=== PATIENT | male | born 2000 | race Caucasian/White ===

== ENCOUNTER 2022-12-24 12:37 | Inpatient (IN) | payer OTHER ==
[~2022-12-24] VITALS: Ht 180.3 cm; Wt 89.5 kg
[2022-12-24] MEDS ORDERED: DIAZEPAM 5 MG TABLET PO ONE (15:00)
[2022-12-24] MEDS ORDERED: IBUPROFEN 600 MG TABLET PO ONE (15:00)
[2022-12-24] MEDS ORDERED: LIDOCAINE 5% (PATCH) 1 EA PATCH TP SCH (15:00)
[2022-12-24] MEDS ORDERED: DIAZEPAM 5 MG TABLET ONE (15:38)
[2022-12-24] MEDS ORDERED: LIDOCAINE 5% (PATCH) 1 EA PATCH TP ONE (15:38)
[2022-12-24] MEDS ORDERED: IBUPROFEN 600 MG TABLET ONE (15:38)
[2022-12-24] MEDS ORDERED: MORPHINE SULFATE INJ 2 MG/ML DISP.SYRIN IV ONE (17:00)
[2022-12-24] MEDS ORDERED: MORPHINE SULFATE INJ 2 MG/ML DISP.SYRIN ONE (17:21)
[2022-12-24 17:51] LABS: BASOPHILS % (AUTO) 0.5 % (0.0-2.0); EOSINOPHILS # (AUTO) 0.1 K/uL (0.0-0.7); EOSINOPHILS % (AUTO) 1.6 % (0.0-6.0); HEMATOCRIT 47 % (39-51); HEMOGLOBIN 15.4 g/dL (13.5-17.5); LYMPHOCYTES # (AUTO) 3.3 K/uL (0.8-4.8); LYMPHOCYTES % (AUTO) 40.8 % (20.0-44.0); MEAN CORPUSCULAR HEMOGLOBIN 29 PG (26.0-33.0); MEAN CORPUSCULAR HGB CONC 33 g/dl (31.0-36.0); MEAN CORPUSCULAR VOLUME 88 fL (80-96); MONOCYTES # (AUTO) 0.4 K/uL (0.1-1.30); MONOCYTES % (AUTO) 4.4 % (2.0-12.0); NEUTROPHILS # (AUTO) 4.3 K/uL (1.8-8.9); NEUTROPHILS % (AUTO) 52.7 % (43.0-81.0); PLATELET COUNT (AUTO) 206 K/uL (150-450); RED BLOOD CELL COUNT(AUTO) 5.32 MIL/uL (4.5-6.0); RED CELL DISTRIBUTION WIDTH 13.8 % (11.5-15.0); WHITE BLOOD COUNT (AUTO) 8.1 K/uL (4.3-11.0)
[2022-12-24 18:18] LABS: CALCIUM, SERUM 8.7 mg/dL (8.5-10.1); CREATININE 0.9 mg/dL (0.6-1.3)
[2022-12-24 20:01] VITALS: O2SAT 98
[2022-12-24 21:10] VITALS: BP 115/67; TEMP 98.6; O2SAT 98
[2022-12-24] MEDS ORDERED: MORPHINE SULFATE INJ 2 MG/ML DISP.SYRIN IV PRN (22:00)
[2022-12-24] MEDS ORDERED: dexaMETHasone SOD PHOSPHATE 10 MG/ML VIAL IV ONE (22:00)
[2022-12-24] MEDS ORDERED: ONDANSETRON HCL/PF 4 MG/2 ML VIAL IVP PRN (22:00)
[2022-12-24] MEDS ORDERED: ACETAMINOPHEN 325 MG TABLET PO PRN (22:00)
[2022-12-24] MEDS ORDERED: DIAZEPAM 5 MG TABLET PO PRN (22:00)
[2022-12-24] MEDS ORDERED: ENOXAPARIN SODIUM 40 MG/0.4 ML DISP.SYRIN SQ SCH ×2 (22:00→22:30)
[2022-12-24] MEDS ORDERED: Z GUARD REMEDY 4 OZ OINT TP PRN (22:00)
[2022-12-24] MEDS ORDERED: KETOROLAC TROMETHAMINE INJ 30 MG/ML VIAL IV PRN (22:30)
[2022-12-24] MEDS: PANTOPRAZOLE 40 MG TABLET.DR PO SCH (22:44)
[2022-12-25 07:30] VITALS: BP 118/67; TEMP 97.9; O2SAT 98
[2022-12-25] MEDS: PANTOPRAZOLE 40 MG TABLET.DR PO SCH (07:39)
[2022-12-25] MEDS ORDERED: dexaMETHasone SOD PHOSPHATE 4 MG/ML VIAL IV SCH (09:00)
[2022-12-25] MEDS ORDERED: PRED20TA PO (10:16)
[2022-12-25] MEDS ORDERED: IBUP-1958 PO (10:16)
== END 2022-12-25 15:35 | disposition home or self-care (01) | DRG 347 ==
LOC: ER 12:45 → MED 19:32
PROVIDERS: ADMIT Nurse Practitioner Acute Care; ATTEND Internal Medicine
DX: M51.17 Intervertebral disc disorders with radiculopathy, lumbosacral region (principal); G89.29 Other chronic pain; M62.830 Muscle spasm of back; M41.9 Scoliosis, unspecified
CPT/HCPCS: 36415; 72131-TC; 80048-TC; 85025-TC; 97112-TC; 97116-TC; 97530-TC; G0378; J1100; J1650; J2270